=== PATIENT | female | born 1960 | race Two or more races ===

== ENCOUNTER 2019-09-16 09:40 | Emergency (ER) | payer BC, OTHER ==
[2019-09-16 10:02] VITALS: BP 163/80; PULSE 107; TEMP 98.2; BMI 27.1
[2019-09-16] MEDS ORDERED: KETOROLAC TROMETHAMINE 60 MG/2 ML VIAL IM ONE (10:40)
--- NOTE | 2019-09-16 10:44 | PDOC ---
History of Present Illness - General Chief Complaint: Back Pain Stated Complaint: PELVIC PAIN Time Seen by Provider: 09/16/19 10:07 History Source: Patient - History of Present Illness Occurred: reports: yesterday Severity: Yes: severe Lower Extremity Pain Location: right: other (groin/proximal medial R thigh) Past History - Past Medical History Allergies/Adverse Reactions: Allergies Allergy/AdvReac Type Severity Reaction Status Date / Time No Known Allergies Allergy Verified 04/18/15 09:45 Home Medications: Ambulatory Orders Cephalexin Monohydrate [Keflex -] 500 mg PO Q8H #21 capsule 04/18/15 Cyclobenzaprine HCl [Flexeril] 5 mg PO TID PRN #20 tablet 04/18/15 Ibuprofen [Motrin -] 800 mg PO Q6H #30 tablet 09/16/19 Tramadol HCl 50 mg PO Q6H #15 tablet MDD 200mg 09/16/19 COPD: No Other medical history: back pain - Psycho Social/Smoking Cessation Hx Smoking Status: No Smoking History: Never smoked Have you smoked in the past 12 months: No Number of Cigarettes Smoked Daily: 0 Information on smoking cessation initiated: No Hx Alcohol Use: No Drug/Substance Use Hx: No Review of Systems - Review of Systems Constitutional: No: Chills, Fever ABD/GI: No: Diarrhea, Nausea, Vomiting, Abdominal cramping : No: Dysuria, Flank Pain, Hematuria *Physical Exam - Vital Signs Last Vital Signs Temp Pulse Resp BP Pulse Ox 98.2 F 107 H 20 163/80 100 09/16/19 09:59 09/16/19 09:59 09/16/19 09:59 09/16/19 09:59 09/16/19 09:59 - Physical Exam General Appearance: Yes: Appropriately Dressed, Moderate Distress HEENT: positive: Normal Voice Neck: positive: Supple Respiratory/Chest: negative: Respiratory Distress Female Pelvic Exam: positive: other (significant ttp to proximal medial R thigh adjacent to R groin, no erythema or swelling, external genitalia wnl) Gastrointestinal/Abdominal: positive: Soft. 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 Patient states pain is located to proximal medial right thigh just adjacent to right groin. Pain started last night and worsened today and now has pain with weightbearing. No recent trauma or other inciting factors. Does not feel like her usual back pain. Patient states her usual pain is usually localized to her R buttocks and radiates to her R leg. No acute sensory changes, lower extremity weakness, dysuria, nausea , vomiting fever or chills see exam R groin pain Suspect ? nerve source given hx of known herniated disc/spinal stenosis to LS spine on MRI 2016, current pain localized to site of pudendal nerve innervation vs MSK pain No trauma No sxs, n/v/f/c No finding on exam to suggest infection or hernia and pelvic wnl XR R hip/pelvis unremarkable -Dose of motrin given here -Dc w/ pain control and ortho spine f/u Discharge - Discharge Information Problems reviewed: Yes Clinical Impression/Diagnosis: Groin pain Qualifiers: Laterality: right Qualified Code(s): R10.31 - Right lower quadrant pain Disposition: HOME - Additional Discharge Information Prescriptions: Ibuprofen [Motrin -] 800 mg PO Q6H #30 tablet Tramadol HCl 50 mg PO Q6H #15 tablet MDD 200mg - Follow up/Referral Referrals: Wiliam Gutierrez MD [Primary Care Provider] - - Patient Discharge Instructions Additional Instructions: Your groin pain might be due to nerve pain stemming from your herniated disc to LS spine Take medication as directed and follow-up with your orthopedic spine doctor If symptoms worsen, return to ER - Post Discharge Activity Work/Back to School Note: Back to Work
[2019-09-16] MEDS ORDERED: KETOROLAC TROMETHAMINE 60 MG/2 ML VIAL ONE (10:59)
== END 2019-09-16 11:28 | disposition home or self-care (01) ==
LOC: JERFT 09:40
PROC: 3E0233Z Introduction of Anti-inflammatory into Muscle, Percutaneous Approach (ICD-10-PCS; principal; 2019-09-16)
DX: R10.31 Right lower quadrant pain (principal); M54.5 Low back pain; G89.29 Other chronic pain; Z87.39 Personal history of other diseases of the musculoskeletal system and connective tissue
CPT/HCPCS: 73523-TC-FY; 99284-25

== ENCOUNTER 2020-09-05 08:59 | Emergency (ER) | payer BC, OTHER ==
[2020-09-05 09:22] VITALS: BP 157/92; PULSE 107; TEMP 98.1; BMI 27.3
[2020-09-05] MEDS ORDERED: KETOROLAC TROMETHAMINE 30 MG/1 ML VIAL IM ONE (09:46)
[2020-09-05] MEDS ORDERED: LIDOCAINE 5% TOPICAL PATCH TP ONE (09:46)
[2020-09-05] MEDS ORDERED: LIDOCAINE 5% TOPICAL PATCH ONE (09:49)
[2020-09-05] MEDS ORDERED: KETOROLAC TROMETHAMINE 30 MG/1 ML VIAL ONE (09:49)
[2020-09-05] MEDS ORDERED: LIDOCAINE PATCH REMOVAL MC ONE (22:00)
== END 2020-09-05 11:55 | disposition home or self-care (01) ==
LOC: JER 08:59
PROC: 3E0233Z Introduction of Anti-inflammatory into Muscle, Percutaneous Approach (ICD-10-PCS; principal; 2020-09-05)
DX: M54.6 Pain in thoracic spine (principal)
CPT/HCPCS: 99284-25

== ENCOUNTER 2022-06-15 04:31 | Day surgery (SDC) | payer BC ==
[2022-06-13 16:29] VITALS: BMI 27.1
[2022-06-15 12:27] VITALS: TEMP 98
[2022-06-15 13:50] VITALS: BP 110/70; PULSE 70; RESP 19
== END 2022-06-15 12:50 | disposition home or self-care (01) ==
LOC: JASU-ENDO 04:31
PROVIDERS: ATTEND Internal Medicine Gastroenterology
PROC: 0DJD8ZZ Inspection of Lower Intestinal Tract, Via Natural or Artificial Opening Endoscopic (ICD-10-PCS; principal; 2022-06-15 10:45)
DX: Z12.11 Encounter for screening for malignant neoplasm of colon (principal)

== ENCOUNTER 2023-01-10 04:27 | Day surgery (SDC) | payer BC ==
[2023-01-08 11:29] VITALS: BMI 26.4
[2023-01-10] MEDS ORDERED: BUPIVACAINE HCL/PF 0.5% (5MG/ML) 10 ML VIAL ONE ×2 (11:46→11:48)
[2023-01-10] MEDS ORDERED: LIDOCAINE 1%-EPI 1:100,000 30 ML MDV IJ ONE (11:47)
[2023-01-10] MEDS ORDERED: PROPOFOL 20 ML ONE (12:14)
[2023-01-10] MEDS ORDERED: MIDAZOLAM HCL 2 MG/2 ML SINGLE DOSE VIAL ONE (12:14)
[2023-01-10] MEDS ORDERED: LIDOCAINE HCL/PF 2% SDV 5ML VIAL ONE (12:14)
[2023-01-10] MEDS ORDERED: DEXAMETHASONE SOD PHOSPHATE 4 MG/1 ML VIAL ONE (12:53)
[2023-01-10] MEDS ORDERED: ceFAZolin SODIUM 1 GM VIAL ONE (12:53)
[2023-01-10] MEDS ORDERED: KETOROLAC TROMETHAMINE 30 MG/1 ML VIAL ONE (12:53)
[2023-01-10] MEDS ORDERED: ONDANSETRON 4 MG/2 ML VIAL ONE (12:53)
[2023-01-10] MEDS ORDERED: PROMETHAZINE HCL 25 MG/1 ML VIAL IVPB PRN (13:24)
[2023-01-10] MEDS ORDERED: ONDANSETRON 4 MG/2 ML VIAL IVPUSH PRN (13:24)
[2023-01-10] MEDS ORDERED: oxyCODONE HCL 5 MG TABLET PO PRN ×2 (13:24)
[2023-01-10] MEDS ORDERED: oxyCODONE HCL 5 MG TABLET ONE (14:50)
[2023-01-10 15:24] VITALS: RESP 18
[2023-01-10 15:25] VITALS: BP 122/78; PULSE 84; TEMP 98
== END 2023-01-10 15:34 | disposition home or self-care (01) ==
LOC: JASU-SURG 04:27 → FASU 04:27
PROVIDERS: ATTEND Orthopaedic Surgery
PROC: 0SBC4ZZ Excision of Right Knee Joint, Percutaneous Endoscopic Approach (ICD-10-PCS; principal; 2023-01-10 12:59)
DX: S83.231A Complex tear of medial meniscus, current injury, right knee, initial encounter (principal); S83.211A Bucket-handle tear of medial meniscus, current injury, right knee, initial encounter; X58.XXXA Exposure to other specified factors, initial encounter; Y93.9 Activity, unspecified; Y92.9 Unspecified place or not applicable
CPT/HCPCS: 29881; G0289; 94760